=== PATIENT | male | born 1965 | race Caucasian/White ===

== ENCOUNTER 2022-12-19 06:39 | Day surgery (SDC) | payer OTHER ==
[~2022-12-19 06:39] MED LIST: Lactated Ringers 1,000 ML IV SCH
[2022-12-19] MEDS ORDERED: Ondansetron 4 MG/2 ML SDV IVPUSH PRN (07:03)
[2022-12-19] MEDS ORDERED: Morphine 2 MG/ML SYRINGE IVPUSH PRN (07:03)
[2022-12-19] MEDS ORDERED: HYDROmorphone 1 MG/ML Syringe IVPUSH PRN (07:03)
[2022-12-19] MEDS ORDERED: Metoclopramide 10 MG/2 ML SDV IVPUSH PRN (07:03)
[2022-12-19] MEDS ORDERED: Naloxone 0.4 MG/ML SDV IVPUSH PRN (07:03)
[2022-12-19] MEDS ORDERED: Albuterol 0.083% 2.5 MG/3 ML Neb Soln NEB PRN (07:03)
[2022-12-19] MEDS ORDERED: fentaNYL 50 MCG/ML SDV IVPUSH PRN (07:03)
[2022-12-19] MEDS ORDERED: EPINEPHrine 1 MG/1 ML Amp ONE ×2 (07:21→07:28)
[2022-12-19] MEDS ORDERED: Lidocaine 1% with EPINEPHrine 1:100,000 10 ML MDV ONE ×2 (07:21→07:28)
[2022-12-19] MEDS ORDERED: fentaNYL 250 MCG/5 ML SDV ONE ×2 (07:24→08:44)
[2022-12-19] MEDS ORDERED: Propofol 200 MG/20 ML SDV ONE (07:24)
[2022-12-19] MEDS ORDERED: Phenylephrine 1% 10 MG/ML SDV ONE (07:25)
[2022-12-19] MEDS ORDERED: Rocuronium Bromide 50 MG/5 ML Syringe ONE ×2 (07:25→09:00)
[2022-12-19] MEDS ORDERED: Dexamethasone 4 MG/ML 5 ML MDV ONE (07:25)
[2022-12-19] MEDS ORDERED: Ondansetron 4 MG/2 ML SDV ONE (07:25)
[2022-12-19] MEDS ORDERED: Ketorolac 30 MG/ML SDV ONE (07:25)
[2022-12-19] MEDS ORDERED: Lidocaine 2% 5 ML SDV ONE (07:25)
[2022-12-19] MEDS ORDERED: Dexmedetomidine 200 MCG/2 ML SDV ONE (07:25)
[2022-12-19] MEDS ORDERED: Ropivacaine 0.5% 5 MG/ML 30 ML SDV ONE (07:26)
[2022-12-19] MEDS ORDERED: fentaNYL 100 MCG/2 ML SDV ONE (07:27)
[2022-12-19] MEDS ORDERED: Water For Injection, Sterile 20 ML ONE (07:28)
[2022-12-19] MEDS ORDERED: ceFAZolin 2 GM in Premix Bag 1 BAG IV SCH (08:00)
[2022-12-19] MEDS ORDERED: Magnesium Sulfate (4.06 MEQ/ML) 5 GM/10 ML SDV ONE (08:24)
[2022-12-19] MEDS ORDERED: Ketamine 500 mg/10 ML MDV ONE (08:29)
[2022-12-19] MEDS ORDERED: Sugammadex Sodium 200 MG/2 ML VIAL ONE (09:32)
[2022-12-19] MEDS ORDERED: HYDROmorphone 2 MG/ML Syringe ONE (10:40)
[2022-12-19 13:31] VITALS: BP 118/66; PULSE 62
== END 2022-12-19 13:00 | disposition home or self-care (01) ==
LOC: MW.SDS 06:39
PROVIDERS: ATTEND Orthopaedic Surgery
DX: M75.101 Unspecified rotator cuff tear or rupture of right shoulder, not specified as traumatic (principal); E23.2 Diabetes insipidus; Z79.899 Other long term (current) drug therapy
CPT/HCPCS: J0131; J0171; J1100; J1170; J1885; J2370; J2405; J2704; J2795; J3010; J3475; J3490; J7120